=== PATIENT | male | born 1995 | race Two or more races ===

== ENCOUNTER 2017-06-02 18:56 | Emergency (ER) | payer OTHER ==
[~2017-06-02] VITALS: Ht 175.3 cm; Wt 64.1 kg
--- NOTE | 2017-06-02 20:39 | PHYS DOC ---
Past History Past Medical History: Anxiety, Asthma Past Surgical History: No Surgical History Alcohol Use: None Drug Use: None Adult General Chief Complaint Chief Complaint: WRIST PAIN HPI HPI Patient is a 22-year-old who sustained a fall well skateboarding he bases follow with his left hand and now presents with complaints of pain at the base of the hand and distal forearm. Patient denies any other injuries. Patient describes swelling around the area. Patient is able to move all fingers without limitation. Patient denies any head injury, elbow pain, shoulder pain, back injury, chest injury, abdominal injury Review of Systems Review of Systems Constitutional: Denies fever or chills [] Eyes: Denies injury HENT: Denies injury Respiratory: Denies cough or shortness of breath [] Cardiovascular: No injury] GI: Denies abdominal pain, injury[] Musculoskeletal: As per history of present illness[] Integument: Denies rash or skin lesions [] Neurologic: Denies headache, focal weakness or sensory changes [] All other systems were reviewed and found to be within normal limits, except as documented in this note. Allergies Allergies Allergies Coded Allergies Type Severity Reaction Last Updated Verified No Known Drug Allergies 06/02/17 No Physical Exam Physical Exam Constitutional: Well developed, well nourished, no acute distress, non-toxic appearance. [] HENT: Normocephalic, atraumatic, no signs of basilar skull fracture Eyes: PERRLA, EOMI, conjunctiva normal, no discharge. [] Neck: Normal range of motion, no tenderness, supple, no stridor. [] Cardiovascular:Heart rate regular rhythm, no murmur [] Lungs & Thorax: Bilateral breath sounds clear to auscultation [] Abdomen: Bowel sounds normal, soft, no tenderness, no masses, no pulsatile masses. [] Skin: Warm, dry, no erythema, no rash. [] Back: No tenderness, no CVA tenderness. [] Extremities: No tenderness, no cyanosis, no clubbing, ROM intact, no edema. [] Neurologic: Alert and oriented X 3, normal motor function, normal sensory function, no focal deficits noted. [] Psychologic: Affect normal, judgement normal, mood normal. [] Current Patient Data Vital Signs Vital Signs Date Time Temp Pulse Resp B/P (MAP) Pulse Ox O2 Delivery O2 Flow Rate FiO2 06/02/17 18:56 92 16 100 Room Air EKG EKG [] Radiology/Procedures Radiology/Procedures Scaphoid fracture minimally displaced[] Course & Med Decision Making Course & Med Decision Making Pertinent Labs and Imaging studies reviewed. (See chart for details) discussed with [facility] hand ortho Dr Sutherland; wants pt in splint and see him in clinic tomorrow ([phone], call at 8am for appointment). Also pt number given to [facility] triage in case rescheduling necessary ([phone]) [] Dragon Disclaimer Dragon Disclaimer This electronic medical record was generated, in whole or in part, using a voice recognition dictation system. Departure Departure: Impression: Primary Impression: Scaphoid fracture Disposition: HOME, SELF-CARE Condition: STABLE Referrals: PCP,NO (PCP) Patient Instructions: Cast or Splint Care, Scaphoid Fracture, Wrist Additional Instructions: please follow up at Dr Sutherland clinic tomorrow (call at 8 am for appointment [phone]), follow up with hand surgery one day (unless otherwise arranged with them) Tena ANTON MD Jun 02, 2017 20:39
[2017-06-02 23:45] VITALS: BP 136/82
--- NOTE | 2017-06-03 08:08 | RAD ---
3 views left wrist 06/02/2017 9:10 PM Indication: injury Comparison: None Findings: There is a nondisplaced fracture extending through the mid scaphoid bone. Overlying soft tissue edema is noted. No dislocation is identified. No other fractures are identified. Impression: Nondisplaced fracture through the mid scaphoid. Radiographic follow-up to ensure normal healing recommended.
== END 2017-06-02 23:48 | disposition home or self-care (01) ==
LOC: ER 18:56
DX: S62.002A Unspecified fracture of navicular [scaphoid] bone of left wrist, initial encounter for closed fracture (principal); J45.909 Unspecified asthma, uncomplicated; V00.138A Other skateboard accident, initial encounter; Y93.51 Activity, roller skating (inline) and skateboarding; Y92.89 Other specified places as the place of occurrence of the external cause; Y99.8 Other external cause status
CPT/HCPCS: 29125; 73110; 99284-25

== ENCOUNTER 2017-08-01 16:53 | Emergency (ER) | payer OTHER ==
[~2017-08-01] VITALS: Ht 175.3 cm; Wt 64.1 kg
[2017-08-01] MEDS ORDERED: CONTRAST GIVEN MC PRN (18:00)
[2017-08-01] MEDS ORDERED: IOHEXOL 240 MG/ML 50ML VIAL. PO ONE (18:00)
[2017-08-01] MEDS ORDERED: IOHEXOL 300 MG/ML 75 ML VIAL. IV ONE (18:00)
[2017-08-01 18:42] LABS: BASO % 1 % (0-3); EOS # 0.1 x10^3/uL (0.0-0.7); EOS % 2 % (0-3); HEMOGLOBIN 15.1 g/dL (13.0-17.5); LYMPH # 1.8 x10^3/uL (1.0-4.8); LYMPH % 30 % (24-48); MEAN CORPUSCULAR HEMOGLOBIN 28 pg (25-35); MEAN CORPUSCULAR HGB CONC 34 g/dL (31-37); MEAN CORPUSCULAR VOLUME 84 fL (79-100); MONO # 0.3 x10^3/uL (0.0-1.1); MONO % 5 % (0-9); NEUT # 3.7 x10^3uL (1.8-7.7); NEUT % 63 % (31-73); PLATELET COUNT 257 x10^3/uL (140-400); RED BLOOD COUNT 5.38 x10^6/uL (4.30-5.70); RED CELL DISTRIBUTION WIDTH 14.2 % (11.5-14.5); WHITE BLOOD COUNT 5.9 x10^3/uL (4.0-11.0)
[2017-08-01] MEDS ORDERED: ONDANSETRON PF 4 MG/2 ML VIAL. IV ONE (18:45)
[2017-08-01 19:07] LABS: ALBUMIN 4.9 g/dL (3.4-5.0); ALBUMIN/GLOBULIN RATIO 1.3 (1.0-1.7); CALCIUM 9.9 mg/dL (8.5-10.1); CREATININE 0.7 mg/dL (0.7-1.3); GFR 142.4; POTASSIUM 3.6 mmol/L (3.5-5.1); TOTAL BILIRUBIN 1.6 mg/dL (0.2-1.0); TOTAL PROTEIN 8.7 g/dL (6.4-8.2)
--- NOTE | 2017-08-01 19:22 | RAD ---
CT scan of the abdomen and pelvis with contrast August 01, 2017 CLINICAL HISTORY: Abdominal pain and constipation for one week. TECHNIQUE: After the oral and intravenous administration of contrast, contiguous, 5 mm axial sections were obtained through the abdomen and pelvis. 75 cc of Omnipaque 300 were administered intravenously during this examination. One or more of the following individualized dose reduction techniques were utilized for this study: 1. Automated exposure control. 2. Adjustment of the mA and/or kV according to patient size. 3. Use of iterative reconstruction technique. FINDINGS: Images through the lung bases are within normal limits. The liver, spleen, pancreas, adrenal glands and kidneys are within normal limits. The abdominal aorta tapers normally. The gallbladder is well-distended. No free fluid or free air is seen within the abdomen. There is no evidence of bowel obstruction. The appendix is not visualized. No inflammatory changes are seen surrounding the cecum. Air and stool is seen throughout the colon. Images through the pelvis demonstrate the urinary bladder distended with urine. A punctate calcification is seen within the right pelvis consistent with a phlebolith. No free fluid is seen. Minimal S-shaped curvature of the thoracolumbar spine is seen. IMPRESSION: No acute abnormality is seen. Electronically signed by: Brooks Montgomery MD (08/01/2017 7:19 PM) [facility]
[2017-08-01 19:39] LABS: BARBITURATES NEG (NEG); BENZODIAZEPINES NEG (NEG); CANNABINOIDS NEG (NEG); COCAINE NEG (NEG); METHADONE NEG (NEG); OPIATES NEG (NEG); PHENCYCLIDINE NEG (NEG)
[2017-08-01] MEDS ORDERED: HYOS0.1264 PO (19:41)
[2017-08-01] MEDS ORDERED: ONDA4TAB11 PO (19:41)
[2017-08-01 19:42] LABS: BILIRUBIN,URINE NEG (NEG); CLARITY,URINE CLOUDY; COLOR,URINE AMBER; GLUCOSE,URINE NEG (NEG)
--- NOTE | 2017-08-01 19:42 | PHYS DOC ---
Past History Past Medical History: Anxiety, Asthma, GERD Past Surgical History: No Surgical History Alcohol Use: None Drug Use: None Adult General Chief Complaint Chief Complaint: GI PROBLEM HPI HPI Patient is a 22-year-old who has chronic history of IBS who presents with complaints of bloating and feeling like his food is not moving, patient is having similar symptoms to previous IBS flareups with some abdominal discomfort similar to previous. Patient denies any fevers, chills, rashes, diarrhea. Patient does feel nauseous. Patient has no sick contacts. Patient does not have a local doctor knows he can follow up at for specialist consults. Per patient that he has similar symptoms and he ended up having a CT scan of the abdomen as well as an MRI which only show lots of gas. The previous ED doctor ordered a CT scan with contrast for this patient Review of Systems Review of Systems Constitutional: Denies fever or chills [] Eyes: Denies change in visual acuity, redness, or eye pain [] HENT: Denies nasal congestion or sore throat [] Respiratory: Denies cough or shortness of breath [] Cardiovascular: No chest pain GI: As per history of present illness Musculoskeletal: Denies back pain or joint pain [] Integument: Denies rash or skin lesions [] Neurologic: Denies headache, focal weakness or sensory changes [] All other systems were reviewed and found to be within normal limits, except as documented in this note. Current Medications Current Medications Current Medications Medications (Trade) Dose Ordered Sig/Fortino Start Time Stop Time Status Last Admin Dose Admin Info (Do NOT chart on this entry -- for MONITORING) 1 each PRN DAILY PRN 08/01/17 18:00 08/03/17 17:59 Iohexol (Omnipaque 240 Mg/ml) 50 ml 1X ONCE 08/01/17 18:00 08/01/17 18:02 DC 08/01/17 18:49 50 ML Iohexol (Omnipaque 300 Mg/ml) 75 ml 1X ONCE 08/01/17 18:00 08/01/17 18:02 DC 08/01/17 18:48 75 ML Ondansetron HCl (Zofran) 4 mg 1X ONCE 08/01/17 18:45 08/01/17 18:46 DC 08/01/17 19:21 4 MG Allergies Allergies Allergies Coded Allergies Type Severity Reaction Last Updated Verified No Known Drug Allergies 06/02/17 No Physical Exam Physical Exam Constitutional: Well developed, well nourished, no acute distress, non-toxic appearance. [] HENT: Normocephalic, atraumatic, bilateral external ears normal, oropharynx moist, Eyes: EOMI, conjunctiva normal, no discharge. [] Neck: Normal range of motion, trachea midline, no stridor. [] Cardiovascular:Heart rate regular rhythm, no murmur, equal pulses, normal perfusion Lungs & Thorax: Bilateral breath sounds clear to auscultation no tachypnea Abdomen: Bowel sounds normal, soft, no tenderness, no masses, no pulsatile masses. [] Skin: Warm, dry, no erythema, no rash. [] Back: No tenderness, no CVA tenderness. Normal range of motion Extremities: No tenderness, no cyanosis, no clubbing, ROM intact, no edema. [] Neurologic: Alert and oriented X 3, normal motor function, on, no focal deficits noted. I'm relates in the ED with normal gait and without assistance Psychologic: Affect normal, judgement normal, mood normal. [] Current Patient Data Vital Signs Vital Signs Date Time Temp Pulse Resp B/P (MAP) Pulse Ox O2 Delivery O2 Flow Rate FiO2 08/01/17 19:25 77 18 122/58 (79) 100 Room Air 08/01/17 18:25 98.2 Lab Results Laboratory Tests Test 08/01/17 17:53 White Blood Count 5.9 x10^3/uL (4.0-11.0) Red Blood Count 5.38 x10^6/uL (4.30-5.70) Hemoglobin 15.1 g/dL (13.0-17.5) Hematocrit 45.0 % (39.0-53.0) Mean Corpuscular Volume 84 fL (79-100) Mean Corpuscular Hemoglobin 28 pg (25-35) Mean Corpuscular Hemoglobin Concent 34 g/dL (31-37) Red Cell Distribution Width 14.2 % (11.5-14.5) Platelet Count 257 x10^3/uL (140-400) Neutrophils (%) (Auto) 63 % (31-73) Lymphocytes (%) (Auto) 30 % (24-48) Monocytes (%) (Auto) 5 % (0-9) Eosinophils (%) (Auto) 2 % (0-3) Basophils (%) (Auto) 1 % (0-3) Neutrophils # (Auto) 3.7 x10^3uL (1.8-7.7) Lymphocytes # (Auto) 1.8 x10^3/uL (1.0-4.8) Monocytes # (Auto) 0.3 x10^3/uL (0.0-1.1) Eosinophils # (Auto) 0.1 x10^3/uL (0.0-0.7) Basophils # (Auto) 0.0 x10^3/uL (0.0-0.2) Sodium Level 139 mmol/L (136-145) Potassium Level 3.6 mmol/L (3.5-5.1) Chloride Level 101 mmol/L (98-107) Carbon Dioxide Level 29 mmol/L (21-32) Anion Gap 9 (6-14) Blood Urea Nitrogen 14 mg/dL (8-26) Creatinine 0.7 mg/dL (0.7-1.3) Estimated GFR (Cockcroft-Gault) 142.4 BUN/Creatinine Ratio 20 (6-20) Glucose Level 87 mg/dL (70-99) Calcium Level 9.9 mg/dL (8.5-10.1) Total Bilirubin 1.6 mg/dL (0.2-1.0) H Aspartate Amino Transferase (AST) 14 U/L (15-37) L Alanine Aminotransferase (ALT) 19 U/L (16-63) Alkaline Phosphatase 103 U/L (46-116) Total Protein 8.7 g/dL (6.4-8.2) H Albumin 4.9 g/dL (3.4-5.0) Albumin/Globulin Ratio 1.3 (1.0-1.7) Lipase 84 U/L (73-393) EKG EKG [] Radiology/Procedures Radiology/Procedures CT of the abdomen today shows no acute findings. Copy of the CT has been given to the patient to discuss with his primary care doctor or specialist.[] Course & Med Decision Making Course & Med Decision Making Pertinent Labs and Imaging studies reviewed. (See chart for details) I observed the patient multiple times in the ED and he has remained in no distress. Vital signs are unremarkable at 1938 Given the exam today as well as the CT findings and the lab findings I do not believe the patient is in need for further inpatient evaluation or additional imaging. Patient is stable for outpatient follow-up. Patient has been provided with resources and he is aware resources available for obtaining primary care as well as specialist consult. [] Dragon Disclaimer Dragon Disclaimer This electronic medical record was generated, in whole or in part, using a voice recognition dictation system. Departure Departure: Impression: Primary Impression: Abdominal pain Disposition: HOME, SELF-CARE Condition: STABLE Referrals: PCP,NO (PCP) Please follow-up with one of the clinics or doctors in the list provided to you. Please follow-up for recheck and reevaluation in one to 2 days Patient Instructions: Abdominal Pain (Nonspecific), Irritable Bowel Syndrome Scripts Ondansetron Hcl (ONDANSETRON HCL) 4 Mg Tablet 1 TAB PO PRN Q6HRS, #10 TAB 1 Refill Prov: Tena ANTON MD 08/01/17 Hyoscyamine Sulfate (LEVSIN) 0.125 Mg Tablet 1 TAB PO TID for 5 Days, #15 TAB 1 Refill Prov: Tena ANTON MD 08/01/17 Tena ANTON MD Aug 01, 2017 19:42
[2017-08-01 19:43] LABS: AMORPHOUS SEDIMENT,UR PRESENT /HPF; BACTERIA,URINE 0 /HPF (0-FEW); NITRITE,URINE NEG (NEG); RBC,URINE 0 /HPF (0-2); SQUAMOUS EPITHELIAL CELL,UR OCC /LPF; UROBILINOGEN,URINE 0.2 mg/dL (0.2 mg/dL); WBC,URINE OCC /HPF (0-4)
[2017-08-01 19:47] LABS: AMPHETAMINE/METHAMPHETAMINE NEG (NEG)
[2017-08-01 20:19] VITALS: BP 120/88
== END 2017-08-01 20:21 | disposition home or self-care (01) ==
LOC: ER 16:53
DX: R14.0 Abdominal distension (gaseous) (principal); J45.909 Unspecified asthma, uncomplicated; K21.9 Gastro-esophageal reflux disease without esophagitis; K58.9 Irritable bowel syndrome, unspecified; F41.9 Anxiety disorder, unspecified
CPT/HCPCS: 36415; 74177; 80053; 80307; 81001; 83690; 85025; 96374; 99285; J2405; Q9966; Q9967; G0479

== ENCOUNTER 2018-06-10 11:11 | Emergency (ER) | payer SELFPAY ==
[~2018-06-10] VITALS: Ht 175.3 cm; Wt 62.7 kg
[~2018-06-10 11:11] MED LIST: HYOS0.1264 PO; ONDA4TAB11 PO
--- NOTE | 2018-06-10 11:49 | PHYS DOC ---
Past History Past Medical History: Anxiety, Other Past Surgical History: No Surgical History Alcohol Use: None Drug Use: None Adult General Chief Complaint Chief Complaint: NAUSEA/VOMITING/DIARRHEA HPI HPI 23-year-old male presents with constipation. The patient has IBS-C. he has been trying disparate laxatives for the last few days. He has had several stool output but is very minimal. He feels like he has pressure in his abdomen like he is constipated. He just wants to see if there is actually any stool in there and what else he can do about it. He denies fever or chills. He has no other complaints. Review of Systems Review of Systems Constitutional: Denies fever or chills [] Eyes: Denies change in visual acuity, redness, or eye pain [] HENT: Denies nasal congestion or sore throat [] Respiratory: Denies cough or shortness of breath [] Cardiovascular: No additional information not addressed in HPI [] GI: abdominal pain, nausea. [] : Denies dysuria or hematuria [] Musculoskeletal: Denies back pain or joint pain [] Integument: Denies rash or skin lesions [] Neurologic: Denies headache, focal weakness or sensory changes [] Endocrine: Denies polyuria or polydipsia [] All other systems were reviewed and found to be within normal limits, except as documented in this note. Allergies Allergies Allergies Uncoded Allergies Type Severity Reaction Last Updated Verified hycosimine Allergy Intermediate nausea 06/10/18 Physical Exam Physical Exam Constitutional: Well developed, well nourished, no acute distress, non-toxic appearance. [] HENT: Normocephalic, atraumatic, bilateral external ears normal, oropharynx moist, no oral exudates, nose normal. [] Eyes: PERRLA, EOMI, conjunctiva normal, no discharge. [] Neck: Normal range of motion, no tenderness, supple, no stridor. [] Cardiovascular:Heart rate regular rhythm, no murmur [] Lungs & Thorax: Bilateral breath sounds clear to auscultation [] Abdomen: Bowel sounds normal, soft, no tenderness, no masses, no pulsatile masses. [] Skin: Warm, dry, no erythema, no rash. [] Back: No tenderness, no CVA tenderness. [] Extremities: No tenderness, no cyanosis, no clubbing, ROM intact, no edema. [] Neurologic: Alert and oriented X 3, normal motor function, normal sensory function, no focal deficits noted. [] Psychologic: Affect normal, judgement normal, mood normal. [] Current Patient Data Vital Signs Vital Signs Date Time Temp Pulse Resp B/P (MAP) Pulse Ox O2 Delivery O2 Flow Rate FiO2 06/10/18 11:11 98.2 81 18 100 Room Air EKG EKG [] Radiology/Procedures Radiology/Procedures [] Impressions: Examination: KUB History: CONSTIPATION FOR 2 WEEKS Comparison/Correlation: None Findings: Frontal views of the abdomen were obtained. Small quantity of stool in the colon is present. No suspicious abdominal calcifications. Bony structures are intact. No bowel obstruction. Bony structures are unremarkable. Impression: No obstruction. Unremarkable exam. Electronically signed by: Fernandez Wong MD (06/10/2018 12:11 PM) [id number] DICTATED AND SIGNED BY: FERNANDEZ WONG MD DATE: 06/10/18 1209 CC: OZZY BLACK DO; PCP,NO Course & Med Decision Making Course & Med Decision Making Pertinent Labs and Imaging studies reviewed. (See chart for details) The patient's abdominal x-ray is unremarkable. He does not have significant stool burden. He was reassured by these results. I have given him general guidance about managing IBS. He will work to get a PCP and consistent placed follow-up. He is stable for discharge at this time. [] Dragon Disclaimer Dragon Disclaimer This electronic medical record was generated, in whole or in part, using a voice recognition dictation system. Departure Departure: Impression: Primary Impression: Abdominal pain Additional Impression: IBS (irritable bowel syndrome) Disposition: HOME, SELF-CARE Condition: STABLE Referrals: PCP,NO (PCP) Patient Instructions: Diet and Irritable Bowel Syndrome, Irritable Bowel Syndrome Problem Qualifiers Primary Impression: Abdominal pain Abdominal location: left lower quadrant Qualified Codes: R10.32 - Left lower quadrant pain Additional Impression: IBS (irritable bowel syndrome) Irritable bowel syndrome type: with constipation Qualified Codes: K58.1 - Irritable bowel syndrome with constipation OZZY BLACK DO Jun 10, 2018 11:49
--- NOTE | 2018-06-10 12:15 | RAD ---
Examination: KUB History: CONSTIPATION FOR 2 WEEKS Comparison/Correlation: None Findings: Frontal views of the abdomen were obtained. Small quantity of stool in the colon is present. No suspicious abdominal calcifications. Bony structures are intact. No bowel obstruction. Bony structures are unremarkable. Impression: No obstruction. Unremarkable exam. Electronically signed by: Dvein Mason MD (06/10/2018 12:11 PM) [id number]
[2018-06-10 13:06] VITALS: BP 130/80
== END 2018-06-10 13:23 | disposition home or self-care (01) ==
LOC: ER 11:11
DX: K58.1 Irritable bowel syndrome with constipation (principal); F41.9 Anxiety disorder, unspecified; Z88.8 Allergy status to other drugs, medicaments and biological substances
CPT/HCPCS: 74018; 99283